=== PATIENT | female | born 1955 | race Caucasian/White ===

== ENCOUNTER → 2024-01-04 | Outpatient (CLI) | payer OTHER, MEDICAID, SELFPAY ==
[2024-01-04 13:51] LABS: Basophils # (Auto) 0.1 Thou/mm3 (0.0-0.2); Basophils % (Auto) 1 % (0-2.5); Eosinophils % (Auto) 1 % (0-10); Hemoglobin 12.9 g/dL (12.0-16.0); Immature Granulocytes % (Auto) 1 % (0-0); Immature Granulocytes Auto 0.03 Thou/mm3 (0.00-0.00); Lymphocytes # (Auto) 1.1 Thou/mm3 (1.0-4.8); Lymphocytes % (Auto) 21 % (10-50); Mean Corpuscular HGB Conc 33.1 g/dl (31.0-37.0); Mean Corpuscular Hemoglobin 30.4 pg (25.0-35.0); Mean Corpuscular Volume 92 fL (80-100); Monocytes # (Auto) 0.6 Thou/mm3 (0.0-0.8); Monocytes % (Auto) 10 % (0-12); Neutrophils # (Auto) 3.7 Thou/mm3 (1.8-7.7); Neutrophils % (Auto) 67 % (37-80); Nucleated Red Blood Cell % 0 /100 WBC (0); Platelet Count 396 Thou/mm3 (140-440); RDW Standard Deviation 44.8 fL (36.4-46.3); Red Blood Count 4.25 Miln/mm3 (4.00-5.20); White Blood Count 5.6 Thou/mm3 (3.6-11.0)
[2024-01-04 14:18] LABS: Alanine Aminotransferase 11 U/L (10-49); Albumin, Serum 4.5 gm/dL (3.4-4.8); Albumin/Globulin Ratio 2.4 (1.2-2.2); Alkaline Phosphatase 79 U/L (46-116); Anion Gap 6 (7-16); Aspartate Amino Transferase 19 U/L (0-34); BUN/Creatinine Ratio 11 Ratio (12-20); Bilirubin,Total 0.8 mg/dL (0.3-1.2); Blood Urea Nitrogen 11 mg/dL (9-23); Calcium 9.7 mg/dL (8.3-10.6); Calcium (Corrected) 9.7 mg/dL (8.5-10.1); Carbon Dioxide 28.8 mMol/L (20.0-31.0); Cardiac Risk Estimate 2.5 RATIO (3.7-5.6); Chloride 103 mMol/L (98-107); Cholesterol 190 mg/dL (132-200); Globulin 1.9 gm/dL (2.3-3.5); Glucose 97 mg/dL (74-106); HDL Cholesterol 75 mg/dL (40-60); LDL Cholesterol,Calculated 96 mg/dL (0-130); Osmolality,Calculated 275 (275-295); Potassium 4.7 mMol/L (3.4-5.1); Sodium 138 mMol/L (136-145); Total Protein 6.4 gm/dL (5.7-8.2); Triglycerides 97 mg/dL (30-150); eGFR > 60 See Note
== END | disposition home or self-care (01) ==
LOC: COPL 13:17
PROVIDERS: PCP Internal Medicine; Referring Provider Internal Medicine; Visit Provider Internal Medicine
DX: I10 Essential (primary) hypertension (principal); E78.5 Hyperlipidemia, unspecified
CPT/HCPCS: 36415; 80053; 80061; 85025

== ENCOUNTER → 2024-06-22 | Outpatient (CLI) | payer OTHER, MEDICAID, SELFPAY ==
[2024-06-22 12:57] LABS: Collection Type, Urine Clean Catch; Squamous Epithelial Cell,Urine 0 /hpf (0-5); WBC,Urine 0 /hpf (0-5)
[2024-06-22 13:28] LABS: Amorphous Crystals,Urine Present (Absent); Bilirubin,Urine Negative (Negative); Blood,Urine Trace (Negative); Clarity,Urine Turbid (Clear/Hazy); Color,Urine Yellow (Lt Yel-Yel); Glucose, Urine Negative (Negative); Hyaline Casts,Urine 2 /hpf (0-1); Ketones,Urine Negative (Negative); Leukocyte Esterase,Urine Negative (Negative); Nitrite,Urine Negative (Negative); PH,Urine 5.5 (5.0-7.0); Protein,Urine 1+ (Neg - Trace); RBC,Urine 32 /hpf (0-3); Specific Gravity,Urine 1.029 (1.001-1.035); Urobilinogen,Urine Negative mg/dL (0.0-1.0)
[2024-06-22 13:45] LABS: Alanine Aminotransferase 8 U/L (10-49); Albumin, Serum 4.4 gm/dL (3.4-4.8); Albumin/Globulin Ratio 2.1 (1.2-2.2); Alkaline Phosphatase 78 U/L (46-116); Anion Gap 7 (7-16); Aspartate Amino Transferase 20 U/L (0-34); BUN/Creatinine Ratio 15 Ratio (12-20); Bilirubin,Total 0.7 mg/dL (0.3-1.2); Blood Urea Nitrogen 16 mg/dL (9-23); Calcium 9.3 mg/dL (8.3-10.6); Calcium (Corrected) 9.3 mg/dL (8.5-10.1); Carbon Dioxide 28.8 mMol/L (20.0-31.0); Cardiac Risk Estimate 3.1 RATIO (3.7-5.6); Chloride 106 mMol/L (98-107); Cholesterol 187 mg/dL (132-200); Creatinine (Component) 1.1 mg/dL (0.6-1.3); Digoxin 1.7 ng/mL (0.8-2.0); Globulin 2.1 gm/dL (2.3-3.5); Glucose 97 mg/dL (74-106); HDL Cholesterol 61 mg/dL (40-60); LDL Cholesterol,Calculated 104 mg/dL (0-130); Osmolality,Calculated 284 (275-295); Potassium 4.7 mMol/L (3.4-5.1); Sodium 142 mMol/L (136-145); Total Protein 6.5 gm/dL (5.7-8.2); Triglycerides 108 mg/dL (30-150); eGFR 54 See Note
== END | disposition home or self-care (01) ==
PROVIDERS: PCP Internal Medicine; Referring Provider Internal Medicine; Visit Provider Internal Medicine
DX: I48.91 Unspecified atrial fibrillation (principal); E78.5 Hyperlipidemia, unspecified; I10 Essential (primary) hypertension
CPT/HCPCS: 36415; 80053; 80061; 80162; 81001

== ENCOUNTER 2024-07-24 11:08 | Emergency (ER) | payer OTHER, MEDICAID, SELFPAY ==
[2024-07-24 11:09] VITALS: BMI 19.3
[2024-07-24 11:23] VITALS: BP 116/88; PULSE 75; RESP 18; TEMP 36.7; O2SAT 98
--- NOTE | 2024-07-24 11:37 | XR_ITS ---
Examination: Forearm, right, 2 views. Technique: Forearm, AP, lateral 2 views Date and time of exam: July 24, 2024 1246 hours INDICATIONS: Pain and swelling involving the forearm beginning 4 days ago. FINDINGS: Prominent osteopenia. No fracture. No cortical bone destruction. Significant arthritic change navicular trapezium first carpometacarpal joints IMPRESSION: No fracture or cortical bone destruction
--- NOTE | 2024-07-24 11:37 | XR_ITS ---
Examination: Right hand 2 views TECHNIQUE: AP lateral right hand 2 views Date and time: July 24, 2024 1245 hours INDICATIONS: Pain and swelling involving the hand beginning 4 days ago. FINDINGS: Severe osteopenia Significant osteoarthritis clavicular trapezium first carpometacarpal joints Soft tissue swelling dorsum of the hand No cortical bone destruction No foreign body IMPRESSION: Soft tissue swelling dorsum of the hand
--- NOTE | 2024-07-24 11:37 | XR_ITS ---
Examination: Duplex scan of the upper extremity, unilateral right Date and time of exam: July 24, 2024 1149 hours INDICATIONS: Right hand swelling and pain beginning 4 days ago Technique: Duplex scan of the extremity veins using B-mode/grayscale imaging and Doppler spectral analysis and color flow Attention is directed to internal echogenicity, compression and augmentation involving these veins, color flow assessment, spectral analysis Findings: Major deep venous structures in the extremity demonstrate normal course and caliber. There is no evidence of deep vein thrombosis. Normal color flow and spectral analysis Impression: Negative for DVT..
--- NOTE | 2024-07-24 11:37 | EDNOTE_ITS ---
Upper Extremity Injury RME/HPI General Chief Complaint: Extremity Injury, Upper Stated Complaint: RT ARM SWELLING Time Seen by Provider: 07/24/24 11:09 Arrival date/time: 07/24/24 11:08 Limitations: no limitations RME / HPI RME / HPI narrative: 68-year-old female with sudden right arm swelling times yesterday. States feels warm and looks red at the dorsum to the mid forearm. Does not recall being stung by any animal. Has thin skin and states did scratch herself but did not think much of it. No history of diabetes. However does have a history of A-fib on blood thinners. States was told to come in due to her history of blood thinners. No shortness of breath no calf swelling. No history of DVT or PE. No history of gout or septic joint. No history of trauma Related Data Home Medications ?Medication ?Instructions ?Recorded ?Confirmed diclofenac sodium 50 mg 50 mg PO QDAY PAIN ##0 12/04 tablet,delayed release esomeprazole magnesium 40 mg 40 mg PO QDAY GERD ##0 08/06/23 capsule,delayed release (Nexium) paroxetine HCl 40 mg tablet (Paxil) 40 mg PO QAM DEPRE SSION #0 tabs 12/04/13 08/06/23 simvastatin 40 mg tablet (Zocor) 20 mg PO HS CHOLESTER OL #0 tabs 12/04/13 08/06/23 apixaban 5 mg tablet (Eliquis) 5 mg PO BID 08/06/23 gabapentin 300 mg capsule 300 mg PO BID 08/06/2308/05 trazodone 50 mg tablet 50 mg PO QDAY 08/06/2308/05 Held on 08/06/23. Instructions: Resume on 08/07/23. Previous Rx's ?Medication ?Instructions ?Recorded cephalexin 500 mg tablet 500 mg PO BID 10 days #20 ta bs 07/24/24 hydrocodone 5 mg-acetaminophen 325 1 tab PO BID PRN pa in 7 days #14 07/24/24 mg tablet tabs sulfamethoxazole 800 1 tab PO BID 10 days #20 tab s 07/24/24 mg-trimethoprim 160 mg tablet (Bactrim DS) Allergies Allergy/AdvReac Type Severity Reaction Status Date / Time No Known Allergies Allergy Verified 08/06/23 12:58 Review of Systems Review of Systems Systems Reviewed: All systems reviewed, normal except as documented Constitutional Constitutional: Denies fever(s) Musculoskeletal Musculoskeletal: Reports as per HPI Integumentary/Breasts Skin/Breast: Reports as per HPI ED Exam General Limitations: Present no limitations General appearance: Present alert and in no apparent distress Eye Eye exam: Present normal appearance, PERRL and EOMI Respiratory Respiratory exam: Present normal lung sounds bilaterally Cardiovascular Cardiovascular exam: Present regular rate, normal rhythm and normal heart sounds Abdominal Exam Abdominal exam: Present soft and normal bowel sounds Extremities Exam Extremities exam: Present other (TTP from dorsum to mid forearm, erythema and edema noted erythema mostly localized to posterior forearm. No elbow TTP full range of motion of both wrist and elbow. Small abrasions noted to forearm.) Back Exam Back exam: Present normal inspection and full ROM Psychiatric Psychiatric exam: Present normal affect and normal mood Skin Skin exam: Present warm, dry, intact and normal color Course Quality Measures none Orders Category Date Time Status Splint / Immobilizer STAT Care 07/24/24 13:58 Active US venous doppler UE RT Stat Exams 07/24/24 11:37 Completed XR forearm RT 2V Stat Exams 07/24/24 11:37 Completed XR hand RT 2V Stat Exams 07/24/24 11:37 Completed CBC Stat Lab 07/24/24 12:50 Completed CMP [Comprehensive Metabolic Panel] Stat Lab 07/24/24 12:50 Completed CRP [C-Reactive Protein] Stat Lab 07/24/24 12:50 Completed Sed Rate (ESR) Stat Lab 07/24/24 12:50 Completed HYDROcodone*/APAP 5/325 [[place] 5/325] Med 07/24/24 11:37 Discontinued 1 tab PO X1 ONE cefTRIAXone [Rocephin] 1,000 mg Med 07/24/24 13:58 Discontinued Lidocaine 1% 20 ml [Xylocaine 1% 20 ML] 2.1 ml IM X1 Vital Signs Vital signs: Vital Signs Temperature 98.1 F 07/24/24 11:23 Pulse Rate 75 07/24/24 11:23 Respiratory Rate 18 07/24/24 11:23 Blood Pressure 116/88 H 07/24/24 11:23 Pulse Oximetry (%) 98 07/24/24 11:23 Oxygen Delivery Method Room Air 07/24/24 11:23 Procedures -ED Splint Fabrication: Pre-Fabricated Type: Cock-Up Reason for Splint: Pain Management Site condition: Abrasion(s) and Edematous Circulation Distal to Splint: Yes Movement Distal to Splint: Yes Senation Distal to Splint: Yes Tolerance: Tolerates Well Extremity Injury MDM Narrative MDM Narrative:: 68-year-old female on blood thinners here for erythema, edema and pain without trauma. Highest on differential was DVT of upper extremity which was ruled out. Septic joint was also considered however unlikely given full range of motion. Elevated inflammatory markers we will treat as cellulitis with possible streaking. Gave dose of IM antibiotics here and medications for home advised if no improvement in 2 days return to ER otherwise follow-up with PCP Patient data External records reviewed:: [facility] previous records Clinical information provided by:: patient and family Social determinants that could affect healthcare access:: other (specify) (Elderly patient requiring assistance) Patient has the following chronic illnesses:: A-fib on blood thinners How is presenting disease/condition affected by chronic disease/condition?: exacerbated by Evaluation data The following diagnostics were reviewed and interpreted by me:: lab results and radiology exam(s) Lab and/or radiology exams considered but not ordered:: CT of chest was also considered however unlikely to be beneficial due to no shortness of breath Interpretation Summary: Negative DVT study, negative hand x-ray negative forearm x-ray no fractures no free air. Normal WBCs however elevated sed rate and CRP Medications / Prescriptions Medications or Prescriptions considered but not ordered:: All medications Medication administrations:: Medication Administration History Discontinued Medications Hydrocodone Bitart/Acetaminophen (Hydrocodone/Apap 5/325 Tablet) 1 tab PO X1 ONE Stop: 07/24/24 11:38 Last Admin: 07/24/24 11:45 Dose: 1 tab Documented By: EF Ceftriaxone Sodium 1,000 mg/ (Lidocaine HCl 2.1 ml) 0 mg IM X1 ONE Stop: 07/24/24 13:59 Last Admin: 07/24/24 14:13 Dose: 1,000 mg Documented By: EF Dose for here for home given Consultations Consultation(s) initiated? (list below): No Diagnosis Upper Extremity Injury Differential Diagnosis: sprain and strain of wrist, fracture of wrist, fracture of humerus and other (Gout, septic joint,) Most likely diagnosis given after review of the tests above:: Cellulitis secondary to thin-skinned from blood thinners Long-term use of blood thinners A-fib Admission Indicated Admission indicated?: not indicated Admission Request Was there a request for admission?: No Disposition Plan Disposition Plan: Discharge Discharge Attestation Discharge Attestation: The patient and all family members were given an opportunity to ask questions and understood the discharge instructions. Discharge instructions specifically effects, indications for sooner follow up or return to the emergency department, and the expected course of current diagnosis. Patient condition: Stable Discharge Plan Plan Patient Disposition: HOME (Self Care) Discharge Disposition comment: Follow-up with PCP in 2 to 3 days Prescriptions/Referrals Prescriptions/Med Rec: New hydrocodone-acetaminophen 5-325 mg tablet 1 tab PO BID MDD 2 PRN (Reason: pain) 7 Days Qty: 14 0RF cephalexin 500 mg tablet 500 mg PO BID 10 Days Qty: 20 0RF sulfamethoxazole-trimethoprim [Bactrim DS] 800-160 mg tablet 1 tab PO BID 10 Days Qty: 20 0RF No Action simvastatin [Zocor] 40 MG tablet 20 mg PO HS Qty: 0 esomeprazole magnesium [Nexium] 40 MG capsule,delayed release(DR/EC) 40 mg PO QDAY Qty: 0 diclofenac sodium 50 MG tablet,delayed release (DR/EC) 50 mg PO QDAY Qty: 0 paroxetine HCl [Paxil] 40 MG tablet 40 mg PO QAM Qty: 0 trazodone 50 mg tablet 50 mg PO QDAY gabapentin 300 mg capsule 300 mg PO BID Eliquis 5 mg Tablet 5 mg PO BID Referrals: Matty Nelson MD [Primary Care Provider] - In 1 week Problem List Clinical Impression: Cellulitis, Edema, Right wrist pain Patient/Caregiver Discharge Instructions Education Materials: Medicine for Pain, ED Cellulitis Print Language: Congolese Stand Alone Forms: Kat Award Info., Patient Portal Info Letter PA/DOT COMPLIANCE SPECIALIST Supervising Physician PA/DOT COMPLIANCE SPECIALIST Supervising Physician: Dr. cardenas
[2024-07-24] MEDS: HYDROcodone/APAP 5/325 TABLET 1 TAB PO (11:45)
--- NOTE | 2024-07-24 12:44 | PC.NURSE ---
CALLED FROM [facility] FOR XRAY AND NO ANSWER. PT NOT FOUND INSIDE THE E.D. OR OUTSIDE THE E.D.
[2024-07-24 13:12] LABS: Basophils % (Auto) 0 % (0-2.5); Eosinophils % (Auto) 0 % (0-10); Hematocrit 37.2 % (36.0-46.0); Hemoglobin 12.9 g/dL (12.0-16.0); Immature Granulocytes % (Auto) 0 % (0-0); Immature Granulocytes Auto 0.04 Thou/mm3 (0.00-0.00); Lymphocytes # (Auto) 1.3 Thou/mm3 (1.0-4.8); Lymphocytes % (Auto) 13 % (10-50); Mean Corpuscular HGB Conc 34.7 g/dl (31.0-37.0); Mean Corpuscular Hemoglobin 29.4 pg (25.0-35.0); Mean Corpuscular Volume 85 fL (80-100); Monocytes # (Auto) 1.1 Thou/mm3 (0.0-0.8); Monocytes % (Auto) 12 % (0-12); Neutrophils # (Auto) 7.1 Thou/mm3 (1.8-7.7); Neutrophils % (Auto) 74 % (37-80); Nucleated Red Blood Cell % 0 /100 WBC (0); Platelet Count 316 Thou/mm3 (140-440); RDW Standard Deviation 41.3 fL (36.4-46.3); Red Blood Count 4.39 Miln/mm3 (4.00-5.20); White Blood Count 9.6 Thou/mm3 (3.6-11.0)
[2024-07-24 13:34] LABS: Alanine Aminotransferase 8 U/L (10-49); Albumin, Serum 4.6 gm/dL (3.4-4.8); Albumin/Globulin Ratio 2.1 (1.2-2.2); Alkaline Phosphatase 74 U/L (46-116); Anion Gap 12 (7-16); BUN/Creatinine Ratio 10 Ratio (12-20); Bilirubin,Total 1.2 mg/dL (0.3-1.2); Blood Urea Nitrogen 11 mg/dL (9-23); C-Reactive Protein 5.3 mg/dL (0.0-0.9); Calcium 9.3 mg/dL (8.3-10.6); Calcium (Corrected) 9.3 mg/dL (8.5-10.1); Carbon Dioxide 26.3 mMol/L (20.0-31.0); Chloride 99 mMol/L (98-107); Creatinine (Component) 1.1 mg/dL (0.6-1.3); Estimated Creatinine Clearance 39.5 mL/min (>60); Globulin 2.2 gm/dL (2.3-3.5); Glucose 108 mg/dL (74-106); Osmolality,Calculated 274 (275-295); Potassium 4.5 mMol/L (3.4-5.1); Sodium 137 mMol/L (136-145); Total Protein 6.8 gm/dL (5.7-8.2); eGFR 54 See Note
[2024-07-24 13:42] LABS: Sed Rate (ESR) 55 mm/hr (0-30)
[2024-07-24] MEDS: cefTRIAXone 1,000 MG, LIDOCAINE 1% 20 ML 2.1 ML IM (14:13)
[2024-07-24 14:36] VITALS: BP 105/64; PULSE 89; RESP 18; TEMP 36.7; O2SAT 96
== END 2024-07-24 14:48 | disposition home or self-care (01) ==
PROVIDERS: Physician Assistant; Emergency Provider Family Medicine; PCP Internal Medicine
DX: L03.113 Cellulitis of right upper limb (principal); M79.89 Other specified soft tissue disorders; R60.9 Edema, unspecified; M25.531 Pain in right wrist
CPT/HCPCS: 36415; 73090; 73120; 80053; 85025; 85652; 86140; 93971; 96372; 99284; J0696; J3490; A9270

== ENCOUNTER → 2024-09-13 | Outpatient (CLI) | payer OTHER, MEDICAID, SELFPAY ==
[2024-09-13 12:48] LABS: Collection Type, Urine Clean Catch
[2024-09-13 13:20] LABS: Basophils # (Auto) 0.1 Thou/mm3 (0.0-0.2); Basophils % (Auto) 1 % (0-2.5); Eosinophils # (Auto) 0.1 Thou/mm3 (0.0-0.5); Eosinophils % (Auto) 1 % (0-10); Hematocrit 37.5 % (36.0-46.0); Hemoglobin 12.4 g/dL (12.0-16.0); Immature Granulocytes Auto 0.01 Thou/mm3 (0.00-0.00); Lymphocytes # (Auto) 1.3 Thou/mm3 (1.0-4.8); Lymphocytes % (Auto) 30 % (10-50); Mean Corpuscular HGB Conc 33.1 g/dl (31.0-37.0); Mean Corpuscular Hemoglobin 29.1 pg (25.0-35.0); Mean Corpuscular Volume 88 fL (80-100); Monocytes # (Auto) 0.5 Thou/mm3 (0.0-0.8); Monocytes % (Auto) 11 % (0-12); Neutrophils # (Auto) 2.5 Thou/mm3 (1.8-7.7); Neutrophils % (Auto) 57 % (37-80); Nucleated Red Blood Cell # 0.00 Thou/mm3 (0.00-0.00); Nucleated Red Blood Cell % 0 /100 WBC (0); Platelet Count 300 Thou/mm3 (140-440); RDW Standard Deviation 44.0 fL (36.4-46.3); Red Blood Count 4.26 Miln/mm3 (4.00-5.20); White Blood Count 4.4 Thou/mm3 (3.6-11.0)
[2024-09-13 13:25] LABS: Bilirubin,Urine Negative (Negative); Blood,Urine Negative (Negative); Clarity,Urine Clear (Clear/Hazy); Color,Urine Lt-Yellow (Lt Yel-Yel); Glucose, Urine Negative (Negative); Ketones,Urine Negative (Negative); Leukocyte Esterase,Urine Negative (Negative); Nitrite,Urine Negative (Negative); PH,Urine 6.0 (5.0-7.0); Protein,Urine Negative (Neg - Trace); RBC,Urine 1 /hpf (0-3); Specific Gravity,Urine 1.013 (1.001-1.035); Squamous Epithelial Cell,Urine 1 /hpf (0-5); Urobilinogen,Urine Negative mg/dL (0.0-1.0); WBC,Urine 1 /hpf (0-5)
[2024-09-13 13:29] LABS: Glucose Estimated Average 128 mg/dL (80-131); Hemoglobin A1C 6.1 % Hgb (4.8-6.0)
[2024-09-13 13:43] LABS: Vitamin B12 413 pg/mL (211-911); Vitamin D 25 Hydroxy Total 32.6 ng/mL (7.3-40.2)
[2024-09-13 13:45] LABS: Alanine Aminotransferase 9 U/L (10-49); Albumin, Serum 4.2 gm/dL (3.4-4.8); Albumin/Globulin Ratio 1.9 (1.2-2.2); Alkaline Phosphatase 73 U/L (46-116); Anion Gap 6 (7-16); Aspartate Amino Transferase 19 U/L (0-34); BUN/Creatinine Ratio 11 Ratio (12-20); Bilirubin,Total 0.6 mg/dL (0.3-1.2); Blood Urea Nitrogen 12 mg/dL (9-23); Calcium 9.4 mg/dL (8.3-10.6); Calcium (Corrected) 9.4 mg/dL (8.5-10.1); Carbon Dioxide 28.7 mMol/L (20.0-31.0); Cardiac Risk Estimate 2.9 RATIO (3.7-5.6); Chloride 105 mMol/L (98-107); Cholesterol 199 mg/dL (132-200); Creatinine (Component) 1.1 mg/dL (0.6-1.3); Globulin 2.2 gm/dL (2.3-3.5); Glucose 96 mg/dL (74-106); HDL Cholesterol 68 mg/dL (40-60); LDL Cholesterol,Calculated 114 mg/dL (0-130); Osmolality,Calculated 279 (275-295); Potassium 4.4 mMol/L (3.4-5.1); Sodium 140 mMol/L (136-145); Thyroid Stimulating Hormone 7.28 uIU/mL (0.55-4.78); Total Protein 6.4 gm/dL (5.7-8.2); Triglycerides 85 mg/dL (30-150); Uric Acid 5.1 mg/dL (3.1-7.8); eGFR 54 See Note
== END | disposition home or self-care (01) ==
LOC: COPL 12:10
PROVIDERS: PCP Internal Medicine; Referring Provider Internal Medicine; Visit Provider Internal Medicine
DX: Z00.00 Encounter for general adult medical examination without abnormal findings (principal); I10 Essential (primary) hypertension
CPT/HCPCS: 36415; 80053; 80061; 81001; 82306; 82607; 83036; 84443; 84550; 85025